=== PATIENT | male | born 1990 | race Caucasian/White ===

== ENCOUNTER 2021-02-12 11:18 | Emergency (ER) | payer OTHER, SELFPAY ==
[2021-02-12 11:25] VITALS: BP 139/86; PULSE 60; RESP 12; TEMP 37; O2SAT 100
--- NOTE | 2021-02-12 11:42 | ED.URI ---
HPI - URI/Sore Throat General Chief Complaint: Upper Respiratory Infection Stated Complaint: sore throat/cough/runny nose/chest congestion Time Seen by Provider: 02/12/21 11:19 Source: patient Mode of arrival: ambulatory Limitations: no limitations History of Present Illness HPI Narrative: 30-year-old male presents to [facility] with complaints of intermittent sore throat, sneezing, runny nose and body aches for the past week. Patient has been taking [id number] Mucinex and using saline nasal spray with minimal relief. Patient denies sick contacts. Patient denies recent travel. Patient denies fever, chills, shortness of breath or wheezing. Patient has received his Covid vaccine. MD elicited complaint: cough, sore throat and rhinorrhea Onset (ago): week(s) (1) Able to tolerate fluids by mouth: Yes Treatments prior to arrival: cold medicine Related Data Allergies Allergy/AdvReac Type Severity Reaction Status Date / Time No Known Allergies Allergy Verified 02/12/21 11:44 Review of Systems Constitutional: Constitutional: Denies chills, Denies fatigue, Denies fever(s) and Denies weakness ENT: Denies dysphagia, Denies dizziness, Denies epistaxis, Denies nasal congestion and Reports sore throat Comments: Runny nose, sneezing Cardiovascular: Cardiovascular: Denies chest pain, Denies rapid heart rate, Denies radiating jaw, neck or arm pain and Denies slow heart rate Respiratory: Respiratory: Denies chest congestion, Reports cough, Denies dyspnea and Denies wheezing Gastrointestinal: Gastrointestinal: Denies abdominal pain, Denies constipation, Denies diarrhea, Denies nausea and Denies vomiting Integumentary/Breasts: Skin/Breast: Denies erythema Neurologic: Denies dizziness PMFSH Social History Social History (Updated 02/12/21 @ 11:44 by Batsheva Toledo, SHAHEED) Smoking status: Never smoker Gender identity (if verbalized by the patient): Male Comments At time of signature, I agree with nursing past medical, surgical, social and family history. There is no relevant family history pertinent to the presenting complaint. Exam Const: General: no acute distress and alert Nutritional Appearance: well nourished Orientation/consciousness: patient oriented x3 HENMT: Head: normal to inspection Ears: external ears normal and TM's normal bilaterally General nose exam: Normal external nose present and Normal nares present Face and sinus: normal facial exam Mouth: Yes lip normal and Yes moist mucous membranes Throat: posterior oropharynx normal and uvula midline Neck: Neck: normal visual inspection Resp: Effort & Inspection: normal respiratory effort, not labored and not tachypneic Auscultation: clear to auscultation bilaterally and no wheezes Cardio: Rate: regular rate, not bradycardic and not tachycardic Rhythm: regular rhythm Skin: General skin exam: normal color, no jaundice and no pallor Rashes: no rashes Wounds: no wounds Neuro: General: patient oriented x3, moves all extremities and no meningeal signs Psych: Appearance: grossly normal Mental Status: mental status grossly normal Affect: normal affect Attitude: cooperative Thought content: Yes Normal thought content present Course Vital Signs Vital signs: Vital Signs Temperature 37.0 C 02/12/21 11:25 Pulse Rate 60 02/12/21 11:25 Respiratory Rate 12 02/12/21 11:25 Blood Pressure 139/86 02/12/21 11:25 Pulse Oximetry 100 02/12/21 11:25 Temperature 37.0 C 02/12/21 11:25 Pulse Rate 60 02/12/21 11:25 Respiratory Rate 12 02/12/21 11:25 Blood Pressure 139/86 02/12/21 11:25 Pulse Oximetry 100 02/12/21 11:25 MDM - URI/Sore Throat MDM Narrative Medical decision making narrative: Inform patient that symptoms are likely viral in nature. Patient agrees to take Claritin daily. Patient agrees to take Tessalon as needed for cough. Patient agrees to follow-up with primary care provider if symptoms not improved. Aayush
== END 2021-02-12 12:01 | disposition home or self-care (01) ==
PROVIDERS: Emergency Provider Nurse Practitioner Family
DX: J06.9 Acute upper respiratory infection, unspecified (principal)
CPT/HCPCS: 87081; 87880; 99213; G0463